=== PATIENT | male | born 1960 | race Caucasian/White ===

== ENCOUNTER 2019-09-04 17:34 | Inpatient (IN) | payer OTHER ==
[~2019-09-04] VITALS: Ht 182.9 cm; Wt 111.2 kg
[2019-09-04 17:41] VITALS: Ht 182.9 cm; Wt 111.2 kg
--- NOTE | 2019-09-04 17:59 | NUR ---
AT BEDSIDE FOR MSE
--- NOTE | 2019-09-04 18:02 | NUR ---
PT PRESENTS TO ED WITH C/O N/V/C X3 DAYS. PT STS HE HAS BEEN UNABLE TO EAT OR DRINK WITHOUT VOMTING X3 DAYS. PT PRIMARILY CONCERNED WITH CONSTIPATION AND STS HE USED 2 ENEMAS AND "MEDICATION TO HELP HIM GO" AND STILL HAS NOT HAD A BM. PT ALSO STS HE HAS INCREASED WORK OF BREATHING WHEN HE LAYS FLAT. PT HAS PAIN UPON PALPATION OF BILATERAL LOWER ABDOMINAL AREA. PT AAOX4, RESP E/U, ON FULL CM, NO ACUTE DISTRESS NOTED AT THIS TIME.
[2019-09-04 18:50] LABS: BASOPHIL % 0.4 % (0-2); PLATELET COUNT 236 x10^3mcL (130-400); RED CELL DISTRIBUTION WIDTH 14.2 % (11.5-14.5)
[2019-09-04 19:02] LABS: AMPHETAMINE QUAL UR NONE DETECTED (See below)
[2019-09-04 19:03] LABS: CALCIUM 11.9 mg/dL (8.5-10.1); CARBON DIOXIDE 33.2 mmol/L (21-32); CHLORIDE SERUM 95 mmol/L (98-107); CREATININE SERUM 2.2 mg/dL (0.7-1.3); GFR1 33 mL/min; GLUCOSE SERUM 154 mg/dL (74-106); POTASSIUM SERUM 3.9 mmol/L (3.5-5.1); SODIUM SERUM 137 mmol/L (136-145)
[2019-09-04 19:05] LABS: UA SPECIFIC GRAVITY 1.025 (1.005-1.035); microscopic required? YES; urine erythrocyte 3+ (NEGATIVE)
[2019-09-04 19:15] LABS: ALBUMIN 4.2 g/dL (3.4-5.0); ALKALINE PHOSPHATASE 87 U/L (46-116); ALT/SGPT 42 U/L (16-63); AST/SGOT 29 U/L (15-37); BILIRUBIN TOTAL 1.5 mg/dL (0.20-1.00); LIPASE 126 IU/L (73-393); MAGNESIUM 3.7 mg/dL (1.8-2.4); T4(THYROXINE) 6.1 ug/dL (4.7-13.3)
[2019-09-04 19:17] LABS: CHOLESTEROL 265 mg/dL (<200); HDL CHOLESTEROL 33 mg/dL (40-60); TOTAL PROTEIN, SERUM 8.3 g/dL (6.4-8.2)
--- NOTE | 2019-09-04 19:42 | NUR ---
PT RETURNS FROM CT WITHOUT INCIDENT AT THIS TIME. RESTING IN A POSITION OF COMFORT, AOX4, RESP EVEN AND UNLABORED, NO ACUTE DISTRESS NOTED.
--- NOTE | 2019-09-04 20:40 | NUR ---
PT RESTING IN A POSITION OF COMFORT, AOX4, RESP EVEN AND UNLABORED, NO ACUTE DISTRESS NOTED.
--- NOTE | 2019-09-04 21:19 | NUR ---
PT RESTING IN A POSITION OF COMFORT, AOX4, RESP EVEN AND UNLABORED, NO ACUTE DISTRESS NOTED. PT FAMILY REMAINS AT BEDSIDE.
--- NOTE | 2019-09-04 23:30 | NUR ---
ATTEMPTED NG TUBE PLACEMENT, PT PULLED OUT TUBE DURING INSERTION AND SAID THAT HE DID NOT WANT IT. PT AWARE THAT THIS IS THE TREATMENT FOR HIS CURRENT DIAGNOSIS. DR HOLLINS AWARE.
--- NOTE | 2019-09-04 23:40 | NUR ---
PT REPORT CALLED TO [facility] TO ASSUME PT CARE.
--- NOTE | 2019-09-04 23:50 | NUR ---
PT TRANSFERRED TO [facility] BY JEFF BY MATTY ACEVEDO. PT ACCEPTED BY [facility] TO ASSUME PT CARE. PT AOX4, RESP EVEN AND UNLABORED, NO ACUTE DISTRESS NOTED.
[2019-09-04] MEDS ORDERED: DEPAKOTE500 MG PO (23:55)
[2019-09-04] MEDS ORDERED: LITHIUM CARBON600 MG PO (23:55)
[2019-09-04] MEDS ORDERED: RIS1 PO (23:56)
[2019-09-04] MEDS ORDERED: TRAZODONE100 MG PO (23:56)
[2019-09-04] MEDS ORDERED: SEROQUEL300 MG PO (23:56)
[2019-09-05 00:20] VITALS: BP 136/85
--- NOTE | 2019-09-05 00:23 | NUR ---
RECEIVED PT FROM ED VIA LUIS. ORIENTED PT TO ROOM AND SURROUNDINGS. IV NOTED TO LEFT HAND PATENT AND INTACT. INSTRUCTED PT ON THE USE OF CALL LIGHT FOR ASSISTANCE. ENDORSED PT TO PRIMARY NURSE [facility]
--- NOTE | 2019-09-05 00:34 | NUR ---
PT'S SISTER STATED PT HAS NOT BEEN ABLE TO TAKE HIS MEDICATIONS FOR HIS BIPOLAR FOR PAST 3 DAYS DUE TO VOMITING. PT REFUSED NG TUBE INSERTION IN ER, CONTINUES TO REFUSE NG TUBE INSERTION. ABDOMEN DISTENDED. PER ER REPORT, PT VOMITS EVEN WITH SIP OF WATER. PT'S SISTER STATED PT WILL BECOME AGITATED, NOTED PT ALREADY SOMEWHAT ANXIOUS. PT ASKING IF HE CAN RECEIVE MEDICATION TO HELP HIM CALM DOWN VIA IV. PAGED Lucas VYAS.
--- NOTE | 2019-09-05 00:38 | NUR ---
Christopher VYAS CALLED BACK. INFORMED DOES NOT HAVE NG TUBE, PT UNABLE TO TAKE PO MEDS. INFORMED PT STARTING TO GET ANXIOUS AND AGITATED DUE TO HAVE MISSED MEDICATIONS FOR BIPOLAR PAST [address] CRUZ GAVE TELEPHONE ORDER FOR ATIVAN 1MG IVP Q 4HRS PRN FOR ANXIETY/AGITATION.
--- NOTE | 2019-09-05 01:05 | NUR ---
STILL REFUSING TO HAVE NG TUBE INSERTION.
--- NOTE | 2019-09-05 01:37 | NUR ---
EYES CLOSED, BREATHING EVEN AND UNLABORED ON ROOM AIR. LYING ON HIS RIGHT SIDE, CALL LIGHT WITHIN EASY REACH. HOB KEPT ELEVATED 40 DEG.
[2019-09-05 05:14] VITALS: BP 132/85
--- NOTE | 2019-09-05 05:14 | NUR ---
VOMITTED DARK COLORED EMESIS, 400ML. ZOFRAN 4MG ADMINISTERED SLOW IVP. HOB KEPT ELEVATED 45 DEG. IVF OF D5 NS INFUSING WELL AT 80ML/HR TO LEFT HAND IV. IV SITE FREE FROM ERYTHEMA OR SWELLING.
--- NOTE | 2019-09-05 06:07 | NUR ---
EYES CLOSED, APPEARS COMFORTABLE AT THIS TIME. KEPT STRICT NPO. ABDOMEN STILL DISTENDED, HYPOACTIVE BOWEL SOUNDS. HOB KEPT ELEVATED 35 DEG. CALL LIGHT WITHIN EASY REACH.
--- NOTE | 2019-09-05 06:07 | NUR ---
IV SITE FREE FROM ERYTHEMA OR SWELLING. IVF INFUSING WELL.
[2019-09-05 06:23] LABS: BASOPHIL % 0.2 % (0-2); PLATELET COUNT 217 x10^3mcL (130-400); RED CELL DISTRIBUTION WIDTH 14.1 % (11.5-14.5)
[2019-09-05 06:40] LABS: CALCIUM 10.6 mg/dL (8.5-10.1); CARBON DIOXIDE 33.2 mmol/L (21-32); CREATININE SERUM 1.8 mg/dL (0.7-1.3); POTASSIUM SERUM 3.7 mmol/L (3.5-5.1)
--- NOTE | 2019-09-05 07:10 | NUR ---
RECEIVED PT FROM SWATHI SEPULVEDA. PT AA/OX4 LAYING IN BED. NO S/S OF ACUTE DISTRESS. NO SOB ON 2LNC. NO C/O ABD. PAIN AT THIS TIME. MED SURG. NO N/V AT THIS TIME. STRICT NPO IN PLACE. IV WNL TO LH, PATENT AND FLUSHES WELL. IVF FLOWING. INSTRUCTED TO USE CALL LIGHT TO CALL FOR ASSISTANCE PRN. VERBALIZED UNDERSTANDING. NO CHEST PAIN. BED IN LOW POSITION. CALL LIGHT WITHIN REACH. WILL CONT. TO MONITOR.
--- NOTE | 2019-09-05 07:15 | NUR ---
AWAKE AND ALERT, KEPT NPO. BREATHING EVEN AND UNLABORED. ENDORSED TO NURSE MARITZA
[2019-09-05 08:24] VITALS: BP 140/85
--- NOTE | 2019-09-05 10:12 | NUR ---
PT COMPLAINT OF NAUSEA. GIVEN IV MED FOR NAUSEA. SEE JAN. IV WNL, IVF FLOWING. NGT INSERTED TO RIGHT NARE, PER DR. MELISSA ORDER. PT TOLERATED PROCEDURE WELL. STAT KUB ORDERED FOR PLACEMENT VERIFICATION. WILL CONNECT TO LOW INTERMITTENT SUCTION PER DR. MELISSA ORDER ONCE PLACEMENT CONFIRMED. PT AA/OX4. NO C/O PAIN. NO S/S OF ACUTE DISTRESS. NO SOB ON ROOM AIR. BED IN LOW POSITION. CALL LIGHT WITHIN REACH. WILL CONT. TO MONITOR.
--- NOTE | 2019-09-05 10:45 | NUR ---
KUB CONFIRMED NGT PLACEMENT. PT CONNECTED TO LOW INTERMITTENT SUCTION PER PHYSICIAN ORDER. RESTING IN BED WITH BOTH EYES CLOSED. O2 SAT 88% ON ROOM AIR. PLACED ON 2LNC. O2 SAT INCREASED TO 94%. RR EVEN/UNLABORED. NO S/S OF ACUTE DISTRESS. NO N/V AT THIS TIME. EASILY AROUSABLE TO VERBAL STIMULI. CALM/COOEPRATIVE. BED IN LOW POSITION. CALL LIGHT WITHIN REACH. WILL CONT. TO MONITOR.
--- NOTE | 2019-09-05 14:29 | NUR ---
PT AA/OX4 LAYING IN BED. REPORTS PASSING GAS RECTALLY X1 AT THIS TIME. DENIES N/V. NGT TO LOW INTERMITTENT SUCTION. GREEN DRAINAGE NOTED FROM NGT. DENIES ABD. PAIN AT THIS TIME. NO CHILLS. NO FEVER. CALM/COOPERATIVE. IV WNL TO LH, IVF FLOWING. BED IN LOW POSITION. CALL LIGHT WITHIN REACH. SISTER AT BEDSIDE. WILL CONT. TO MONITOR.
[2019-09-05 17:32] VITALS: BP 104/61
--- NOTE | 2019-09-05 18:36 | NUR ---
PT RECEIVING SMALL BOWEL FOLLOW THROUGH STUDY AT THIS TIME. NGT LOCKED FOR PROCEDURE. OUTPUT FROM NGT 1100CC GREEN. NGT INTACT TO RIGHT NARE. ALVAREZ OUTPUT 400CC, NUPUR/CLEAR. PT AA/OX4. NO C/O NAUSEA AT THIS TIME. NO SOB ON 2LNC. NO CHEST PAIN. CALM/COOPERATIVE. NO S/S OF ACUTE DISTRESS. BED IN LOW POSITION. CALL LIGHT WITHIN REACH. WILL CONT. TO MONITOR.
--- NOTE | 2019-09-05 19:35 | NUR ---
RECEIVED PT FROM DAY SHIFT RN. PT AAOX4 DENIES QUINTANILLA/DIZZINESS. BREATHING EVEN AND UNLABORED ON 2L/MIN NC, WITH NO SOB NOTED. MED SURG PT DENIES CHEST PAIN/PRESSURE. ABD SOFT/DISTENDED ACTIVE BOWEL SOUNDS DENIES ABD PAIN/N/V AT THIS TIME. NGT RIGHT NARE SUCTION OFF AT THIS TIME FOR SMALL BOWEL SERIES STUDY. HOB ELEVATED. ASPIRATION PRECAUTIONS. F/C IN PLACE DRAINING YELLOW URINE. PT ABLE TO TURN AND REPOSITION SELF. IV LH PATENT, INFUSING WELL. REINFORCE NPO STATUS WITH PT. CALL BUTTON WITHIN REACH. SAFETY PRECAUTIONS IN PLACE. WILL CONTINUE TO MONITOR.
[2019-09-05 20:30] VITALS: BP 118/81
--- NOTE | 2019-09-05 21:37 | NUR ---
PT REPORTED FEELING ANXIOUS AND REQUESTING MEDICATION. ATIVAN GIVEN PER EMAR. CALL BUTTON WITHIN REACH. SAFETY PRECAUTIONS IN PLACE. WILL CONTINUE TO MONITOR.
--- NOTE | 2019-09-05 22:15 | NUR ---
MUSIC MANAGER AT BEDSIDE. WILL CONTINUE WITH SMALL BOWEL FOLLOW UP SERIES FOR ANOTHER 3 HOURS PER TECH.
--- NOTE | 2019-09-06 00:45 | NUR ---
PT RESTING. NO SIGNS OF DISTRESS NOTED. CALL BUTTON WITHIN REACH. SAFETY PRECAUTIONS IN PLACE. WILL CONTINUE TO MONITOR.
--- NOTE | 2019-09-06 02:10 | NUR ---
PESTICIDE CHEMIST AT BEDSIDE. WILL CONTINUE WITH SMALL BOWEL FOLLOW UP SERIES.
--- NOTE | 2019-09-06 04:02 | NUR ---
PT ANXIOUS REMOVING GOWN AND ATTEMPTING TO REMOVE NGT AND NC. REINFORCE TEACHING ON KEEPING NGT AND NC ON. ATIVAN GIVEN PER EMAR. CALL BUTTON WITHIN REACH. SAFETY PRECAUTIONS IN PLACE. WILL CONTINUE TO MONITOR.
--- NOTE | 2019-09-06 04:47 | NUR ---
PT SLEPT MOST OF THE NIGHT WITH NO SIGNS OF DISTRESS NOTED. BREATHING EVEN AND UNLABORED ON NC 2L/MIN. WITH NO SOB NOTED. NGT IN PLACE. SMALL BOWEL FOLLOW UP SERIES CONTINUE AT THIS TIME. PT DENIES ANY PAIN/DISTRESS. IV PATENT INFUSING WELL. NO SIGNS OF INFILTRATION. F/C IN PLACE DRAINING YELLOW URINE. MEDICATED PER EMAR. CALL BUTTON WITHIN REACH. SAFETY PRECAUTIONS IN PLACE. WILL CONTINUE TO MONITOR.
[2019-09-06 05:15] VITALS: BP 140/71
--- NOTE | 2019-09-06 06:55 | NUR ---
RECEIVED A CALL FROM DR MELISSA THIS MORNING, NEW ORDERS CARRIED OUT.
--- NOTE | 2019-09-06 07:00 | NUR ---
AAO X4.DENIES ANY PAIN.R NARE WITH NGT TO REG SUCTION.WILL PUT IT TO LIS ENDORSED BY NOC RN.LUNGS CLEAR.IVF D5 NS AT 125 ML/HR INFUSING WELL.CALL LIGHT WITHIN REACH.INSTRUCTED TO CALL FOR ANY PAIN/DISCOMFORT.WILL CONTINUE TO MONITOR PT.ALSO PT ON NPO STATUS.
[2019-09-06 07:05] LABS: BASOPHIL % 0.3 % (0-2); PLATELET COUNT 197 x10^3mcL (130-400); RED CELL DISTRIBUTION WIDTH 13.3 % (11.5-14.5)
[2019-09-06 07:08] LABS: BILIRUBIN TOTAL 0.53 mg/dL (0.20-1.00); CALCIUM 10.2 mg/dL (8.5-10.1); CARBON DIOXIDE 29.8 mmol/L (21-32); CREATININE SERUM 1.3 mg/dL (0.7-1.3); MAGNESIUM 2.6 mg/dL (1.8-2.4); POTASSIUM SERUM 3.8 mmol/L (3.5-5.1); TOTAL PROTEIN, SERUM 6.4 g/dL (6.4-8.2)
[2019-09-06 07:17] LABS: ALBUMIN 3.2 g/dL (3.4-5.0)
--- NOTE | 2019-09-06 07:32 | NUR ---
PT RESTING. NO SIGNS OF DISTRESS NOTED. NGT SUCTION PER ORDER. ENDORSED CARE TO DAY SHIFT RN, ALL QUESTIONS ADDRESSED.
[2019-09-06 08:09] VITALS: BP 118/82
--- NOTE | 2019-09-06 08:33 | NUR ---
SPOKE WITH AND INFORMED OF NOTES AND HE STATED NO NEED FOR GI CONSULT FOR ILEUS.
--- NOTE | 2019-09-06 10:00 | NUR ---
PT NEARLY PULLED HIS NGT. AT BEDSIDE.PUT BACK HIS NGT.ASKED HE NEEDS TO ORDER KUB TO VERIFY PLACEMENT. PER HE DOES NOT NEED IT RIGHT NOW.PT NEEDS TO BE ON NGT FOR 1 MORE DAY.
--- NOTE | 2019-09-06 10:20 | NUR ---
GOT A CALL FR.PT'S SISTER ABOUT HER CONCERN OF PT NOT GETTING HIS PSYCHE MEDS.TALKED TO AND INFORMED HIM. UNABLE TO GIVE PSYCHE MEDS DUE TO PT ON SUCTION PER DR. JIMÉNEZ.WILL CALL [facility] TO INFORM HER.
--- NOTE | 2019-09-06 14:41 | NUR ---
PT CLAIMS ALVAREZ WAS LEAKING.CLAIMS TO HAVE BEEN CLAMPING THE TUBE.INFORMED PT NOT TO CLAMP IT.ALVAREZ IS DRAINING GOOD.CHANGED ANTHONY AND CLEANED PT.ALSO EMPTIED THE DRAINAGE FOR NGT.EMPTIED 550 ML OF BROWNISH FLUID.
[2019-09-06 16:53] VITALS: BP 137/87
--- NOTE | 2019-09-06 19:30 | NUR ---
PT RECIEVED FROM DAY NURSE. PT RESTING IN BED AT THIS TIME. DENIES PAIN OR DISCOMFORT AT THIS TIME. A/OX4, CALM AND COOPERATIVE AT THIS TIME. PT MS, DENIES CP, NV, DIZZINESS, OR PALPATATIONS. PALPABLE PULSES, NO EDEMA NOTED AT THIS TIME. BREATHING E/U. ABD SOFT AND ROUND, DENIES PAIN TO PALPATION. NGT TO R NARE NOTED TO LOW INTERMITTENT SUCTIONING. DRAINING COFFEE GROUND DRAINIAGE. ALVAREZ INTACT, DRAINING TO GRAVITY. GENERALIZED WEAKENESS, REPOSITIONS SELF. GEORGE TO LH INTACT AND INFUSING. BED AT LOWEST POSITION. CALL LIGHT WITHIN REACH. WILL CONTINUE TO MONITOR.
[2019-09-06 20:32] VITALS: BP 131/82
--- NOTE | 2019-09-06 22:00 | NUR ---
PT COMPLAINING OF AGITATION. MEDICATED WITH PRN ATIVAN. WILL CONTINUE TO MONITOR.
--- NOTE | 2019-09-07 00:36 | NUR ---
PT RESTING IN BED AT THIS TIME. DENIES PAIN OR DISCOMFORT. BREATHING E/U ON 2 L NC. NGT TO R NARE INTACT AND SUCTIONING. BED AT LOWEST POSITION. CALL LIGHT WITHIN REACH. WILL CONTINUE TO MONITOR.
[2019-09-07 05:07] VITALS: BP 140/80
[2019-09-07 06:20] LABS: BASOPHIL % 0.3 % (0-2); PLATELET COUNT 211 x10^3mcL (130-400); RED CELL DISTRIBUTION WIDTH 13.9 % (11.5-14.5)
--- NOTE | 2019-09-07 06:35 | NUR ---
PT RESTING IN BED AT THIS TIME. DENIES PAIN OR DISCOMFORT AT THIS TIME. BREATHING E/U ON 2L NC. NO SIGNS OF ACUTE DISTRESS NOTED AT THIS TIME. ALL NEEDS AND CONCERNS ADDRESSED THIS SHIFT. WILL ENDORSE TO DAY NURSE.
[2019-09-07 06:39] LABS: BILIRUBIN TOTAL 0.5 mg/dL (0.20-1.00); CALCIUM 9.9 mg/dL (8.5-10.1); CARBON DIOXIDE 31.6 mmol/L (21-32); CREATININE SERUM 1.3 mg/dL (0.7-1.3); MAGNESIUM 2.1 mg/dL (1.8-2.4); POTASSIUM SERUM 4.1 mmol/L (3.5-5.1)
[2019-09-07 06:43] LABS: ALBUMIN 3.1 g/dL (3.4-5.0)
--- NOTE | 2019-09-07 07:30 | NUR ---
AAO X4.DENIES ANY PAIN/DISCOMFORT.R NARE WITH NGT CONNECTED TO LIS DRAINING BROWNISH FLUID.LUNGS CLEAR.ABDOMEN SOFT.CLAIMS TO BE PASSING GAS ALREADY.IVF D5NS GOING AT 125 ML.HR INFUSING WELL.CALL LIGHT WITHIN REACH.INSTRUCTED TO CALL FOR ANY PAIN/DISCOMFORT.WILL CONTINUE TO MONITOR PT.
[2019-09-07 08:13] VITALS: BP 134/86
--- NOTE | 2019-09-07 10:30 | NUR ---
ASSSUMED CARE AND REPORT FROM [facility] MASTERS AT BEDSIDE, PT IN BED, IN NO ACUTE DISTRESS, NGT TO (R) NARE PATENT AND INTERMITTENCE SUCTION, NOTED 500CC DARK BROWN W/ CLOTTING IN SUCTION TUBE, FC PATENT AND DRAINED WELL, DARK YELLOW URINE, APPROXIMATELY 600ML URINE, CLEAR, IV PATENT AND INFUSING WELL, DRESSING CDI, FAMILY AT BEDSIDE, PT IN NO ACUTE DISTRESS, DENIED PAIN/DISCOMFORT, DENIED N/V/D, DENIED CP/QUINTANILLA/PALPITATION, NO FACIAL DROOP/SLURRED SPEECH NOTED, SAFETY PROTOCOL MAINTAINED, CONTINUE TO MONITOR
--- NOTE | 2019-09-07 10:30 | NUR ---
CAME TO SEE PT.WILL BE ON HALDOL RTC.INFORMED CHARGE NURSE.PUT PT ON TELE.ASSIGNED PT TO TELE NURSE. ENDORSED PT TO SONAM GAO.
--- NOTE | 2019-09-07 10:58 | NUR ---
SEEN BY SURGEON SHIN, NEW ORDER OBTAINED, PT AND FAMILY MADE AWARE, NO FURTHER CONCERNS NEEDED AT THIS TIME WHEN ASKED, PT RESTIN IN BED, IN NO ACUTE DISTRESS, CONTINUE TO MONITOR
--- NOTE | 2019-09-07 11:32 | NUR ---
PT HAD XRAY DONE AT BEDSIDE, HANK MELISSA MADE AWARE, AWAITING FOR RESULT, PT IN BED IN NO ACUTE DISTRESS
--- NOTE | 2019-09-07 14:26 | NUR ---
URINE COLLECTED FOR UA ORDER, PT AND FAMILY MADE AWARE, SAMPLE SENT TO LAB, OT IN BED IN NO ACUTE DISTRESS, CONTINUE TO MONITOR
[2019-09-07 15:25] LABS: microscopic required? YES; urine erythrocyte 2+ (NEGATIVE)
[2019-09-07 16:03] VITALS: BP 145/92
--- NOTE | 2019-09-07 17:46 | NUR ---
PT RESTING IN BED, CALM AND COOPERATIVE, VERBAL, AXOX4, DENIED PAIN/QUINTANILLA/CP/PALPITATION, DENIED N/V/D, NO FACIAL DROOP/SLURRED SPEECH, RESP E/U, RA, TELE, NSR, NGT DRAINAED WELL W/ GRAVITY, FC PATENT AND DRAINED WELL, NPO, IV PATENT AND INFUSING WELL, DRESSING CDI, SISTER AT BEDSIDE, PT REPORTED PASSING GAS, ALL NEEDS ADDRESSED AT THIS TIME, SAFETY PROTOCOL MAINTAINED, WILL ENDORSE TO ONCOMING RN
--- NOTE | 2019-09-07 19:30 | NUR ---
PT RECIEVED FROM DAY NURSE. PT RESTING IN BED AT THIS TIME. A/O X4, CALM AND COOPERATIVE AT THIS TIME. TELE 17, SB. DENIES CP, NV, DIZZINESS, OR PALPATATIONS. PALPABLE PULSES, NO EDEMA NOTED AT THIS TIME. BREATHING E/U ON 2L NC. DENIES SOB. ABD SOFT AND ROUND. DENIES PAIN TO PALPATION. NGT TO R NARE DRAINING TO GRAVITY, DRAINING BROWN LIQUID. ALVAREZ IN PLACE DRAINING TO GRAVITY. GENERALIZED WEAKNESS. IV TO LH, INTACT AND INFUSING. WILL CONTINUE TO MONITOR.
[2019-09-07 20:57] VITALS: BP 199/91
--- NOTE | 2019-09-07 21:30 | NUR ---
PT BP 199/19. MADE AWARE. NEW ORDERS PROVIDED. WILL MEDICATE PT AND CONTINUE TO MONITOR.
[2019-09-07 22:10] VITALS: BP 129/87
--- NOTE | 2019-09-07 22:10 | NUR ---
RECHECKED PT BP PRIOR TO GIVING PRN BP MED. PT BP NOW 127/87. HELD PRN BP MED. WILL CONTINUE TO MONITOR.
--- NOTE | 2019-09-08 | NUR ---
PT RESTING IN BED AT THIS TIME. NO S/S OF PAIN OR DISCOMFORT AT THIS TIME. BREATHING E/U ON 2L NC. NO SIGNS OF ACUTE DISTRESS AT THIS TIME. BED AT LOWEST POSITION. CALL LIGHT WITHIN REACH. WILL CONTINUE TO MONITOR.
[2019-09-08 06:13] VITALS: BP 148/98
[2019-09-08 06:27] LABS: BASOPHIL % 0.5 % (0-2); PLATELET COUNT 227 x10^3mcL (130-400); RED CELL DISTRIBUTION WIDTH 12.9 % (11.5-14.5)
--- NOTE | 2019-09-08 06:54 | NUR ---
PT RESTING IN BED AT THIS TIME. DENIES PAIN OR DISCOMFORT. BREATHING E/U ON 2L NC. NO SIGNS OF ACUTE DISTRESS AT THIS TIME. WILL ENDORSE TO DAY NURSE. 1500 NG OUTPUT THIS SHIFT. WILL ENDORSE TO DAY NURSE.
[2019-09-08 07:07] LABS: BILIRUBIN TOTAL 0.7 mg/dL (0.20-1.00); CALCIUM 9.8 mg/dL (8.5-10.1); CARBON DIOXIDE 31.2 mmol/L (21-32); CREATININE SERUM 1.3 mg/dL (0.7-1.3); MAGNESIUM 1.8 mg/dL (1.8-2.4); POTASSIUM SERUM 3.7 mmol/L (3.5-5.1); TOTAL PROTEIN, SERUM 6.4 g/dL (6.4-8.2)
[2019-09-08 07:13] LABS: ALBUMIN 3.2 g/dL (3.4-5.0)
--- NOTE | 2019-09-08 07:30 | NUR ---
PT ENDORSE TO ME THIS MORNING LAYING IN BED RESTING AT 40DEG, AA/ O X4. BREATHING EVEN AND UNLABORED ON 2L NC, NO ACUTE RESP DISTRESS OR SOB NOTED. TELE 17 SR NOTED, HR CURRENTLY 71BPM. PER NIGHT NURSE STATED ONCE HALDOL IM WAS GIVEN LAST NIGHT, HR DROPPED TO LOW 30S. AT THIS TIME PT DENIES ANY CP OR DISCOMFORT. BOWEL SOUNDS ACTIVE IN ALL FOUR QUADS, NGT TO RIGH NARE INPLACE DRAINING TO GRAVITY. 600ML OF DARK BOWN NOTED. EDUCATED TO PATIENT AND HIS SISTER THE IMPORTANCE OF NOT DRINK WATER OR HAVING ICE. PER PT STATED DOCTOR STATED HE CAN HAVE ICE EVERY 2 HOURS. WILL CONFRIM WITH DOCTOR REGRADING ICE. ALVAREZ INTACT AND DRAINING/ 500ML OF YELLOW URINE NOTED. IV TO THE L HAND INACT AND PATENT/ NO REDNESS OR SWELLING NOTED. SISTER AT BEDSIDE. WILL CONTINUE TO MONTIOR.
--- NOTE | 2019-09-08 09:11 | NUR ---
PT C/O OF FEELING ANXIOUS, MEDICATED PER EMAR. REFUSING TO HAVE ANYMORE HALDOL IM, STATING HES GETTING A REACTION. MADE AWARE/ WILL CONTINUE TO DREW.
--- NOTE | 2019-09-08 09:17 | NUR ---
WALKED INTO THE ROOM AND PT SISTER WAS GIVING PT ICE WITH SOME WATER. ADVICE BOTH PATIENT AND SISTER THE IMPORTANCE OF NOT HAVING WATER, THEY AGREED. WILL CONTINUE TO MONITOR.
--- NOTE | 2019-09-08 09:30 | NUR ---
DR. JIMÉNEZ AT THE BEDSIDE, EXPLAIN PLAN OF CARE TO PT AND HIS SISTER. DR. JIMÉNEZ MADE AWARE OF PT HR DROPPING FROM 60S TO HIGH 30S AT TIMES. PER DR. JIMÉNEZ PT IS TO ONLY HAVE A FEW ICE CHIPS JUST TO MOIST MOUTH. WILL CONTINUE TO MONITOR.
[2019-09-08 11:30] VITALS: BP 158/91
--- NOTE | 2019-09-08 12:42 | NUR ---
PER DR. MELISSA ORDERS, ADVANCE NGT PLACEMENT TO 3RD GOOD, KUB ORDER STAT TO CHECK PLACEMENT. WILL CONTINUE TO MONITOR.
[2019-09-08 12:44] VITALS: BP 147/94
--- NOTE | 2019-09-08 13:01 | NUR ---
KUB RESULTS BACK, NG TUBE INPLACE/ NOW CONNECTED TO INTERMITTENT SUCTION/ TOLERATING WELL. WILL CONTINUE TO MONITOR.
--- NOTE | 2019-09-08 14:07 | NUR ---
PT HAD FORMED BM THIS AM. WILL CONTINUE TO MONITOR.
--- NOTE | 2019-09-08 16:04 | NUR ---
PHYSICAL THERAPY NOTE PATIENT AND FAMILY REFUSED EVAL AT THIS TIME SECONDARY TO MS WEAKNESS/ FATIGUE AND HAD CHANGE IN MEDS PER PATIENT. PATIENT EDUCATED WITH BENEFITS OF TREATMENT AND EVAL TO INCREASE MS STRENGTH AND STANDING BALANCE. UNABLE TO ENCOURAGE. PATIENT AND FAMILY REQUEST TO START TREATMENT TOMMORROW. NURSING AWARE AND CONFIRMED. WILL ATTEMPT EVAL NEXT VISIT.
[2019-09-08 17:38] VITALS: BP 140/79
--- NOTE | 2019-09-08 17:59 | NUR ---
PER DR. KATE ORDERS CLAMPED NG TUBE. TOTAL OUTPUT WHEN PT WAS ON INTERMITTENT 300ML/ DARK BROWN FLUID. WILL CONTINUE TO MONITOR.
--- NOTE | 2019-09-08 18:29 | NUR ---
NO ACUTE CHANGES AT THIS TIME, NO ACUTE RESP DISTRESS OR SOB NOTED. REMAINS ON 2L NC TOLERATING WELL. NGT TO RIGHT NARE CLAMP PER DR. KATE ORDERS. TOTAL OUTPUT FOR NGT 900ML= DARK BROWN FLUID. FOELY INTACT AND PATENT= TOTAL OUTPUT 900ML/DARK YELLOW URINE NOTED. IV TO THE LHAND INFUSING AT 125M/HR NO REDNESS OR SWELLING NOTED. CALL LIGHT IN REACH. BED IN LOW POSITTION. WILL CONTINUE TO MONITOR. WILL ENDORSE TO INCOMING RN.
[2019-09-08 19:28] VITALS: BP 125/71
--- NOTE | 2019-09-08 19:56 | NUR ---
RECEIVED PT IN BED, RESTING QUIETLY AT THIS TIME.ALERT AND ORIENTED. DENIES HEADACHE/DIZZINESS. RESP. EVEN AND UNLABORED.[address], NO ACUTE DISTRESS NOTED. NGT TO RT NARE, CLAMPED.CRISTIN. WELL. NO N/V NOTED. IVF, 1/2NS AT 125ML/HR, INTACT AND INFUSING VIA LT HAND, SITE CLEAR. ABD. SOFT, NON DISTENDED, BS ACTIVE, NO N/V NOTED. ALVAREZ CATH INTACT AND DRAINING YELLOW COLOR URINE.ASSISTED WITH HS CARE. CALL LIGHT WITHIN REACH. WILL CONTINUE TO MONITOR.
--- NOTE | 2019-09-09 02:12 | NUR ---
RESTING QUIETLY IN BED, WITH EYES CLOSED, APPEARS ASLEEP, EASILY AROUSABLE. RESP. EVEN AND UNLABORED. [address], NO ACUTE DISTRESS NOTED. NGT IN PLACE, CLAMPED, NO N/V NOTED. IVF INTACT AND INFUSING WELL, SITE CLEAR. CALL LIGHT WITHIN REACH. WILL CONTINUE TO MONITOR.
[2019-09-09 04:23] VITALS: BP 134/89
[2019-09-09 06:08] LABS: BASOPHIL % 0.3 % (0-2); PLATELET COUNT 193 x10^3mcL (130-400); RED CELL DISTRIBUTION WIDTH 13.3 % (11.5-14.5)
--- NOTE | 2019-09-09 06:10 | NUR ---
SLEPT MOST OF THE NIGHT. NO COMPLAINTS NOTED. RESP. EVEN AND UNLABORED. [address], NO ACUTE DISTRESS NOTED.NGT IN PLACE AND CLAMPED. CRISTIN. MEDS WELL. NO N/V NOTED.NPO MAINTAINED. IVF INTACT AND INFUSING WELL, SITE CLEAR. ALVAREZ CATH INTACT AND DRAINING YELLOW COLOR URINE. KEPT COMFORTABLE. NO AGITATION NOTED. AFEBRILE AD VITAL SIGNS STABLE. CALL LIGHT WITHIN REACH. WILL CONTINUE TO MONITOR.
[2019-09-09 06:21] LABS: ALKALINE PHOSPHATASE 59 U/L (46-116); ALT/SGPT 38 U/L (16-63); AST/SGOT 27 U/L (15-37); BILIRUBIN TOTAL 0.82 mg/dL (0.20-1.00); CALCIUM 9.8 mg/dL (8.5-10.1); CARBON DIOXIDE 26.9 mmol/L (21-32); CHLORIDE SERUM 108 mmol/L (98-107); CREATININE SERUM 1.2 mg/dL (0.7-1.3); GFR1 > 60 mL/min; GLUCOSE SERUM 106 mg/dL (74-106); MAGNESIUM 1.9 mg/dL (1.8-2.4); POTASSIUM SERUM 3.5 mmol/L (3.5-5.1); SODIUM SERUM 144 mmol/L (136-145)
[2019-09-09 06:33] LABS: ALBUMIN 2.9 g/dL (3.4-5.0)
--- NOTE | 2019-09-09 07:34 | NUR ---
PT LYING IN BED A/A. BREATHING EQUAL/ UNLABORED ON 2 L/ NC. NO ACUTE DISTRESS/ PAIN AT THIS TIME. NGT TO R. NARE IS CLAMPED, NO C/O N/V. ALVAREZ FLOWING TO GRAVITY WITH YELLOW URINE. IVF RUNNING AT 125 ML/HR. NO REDNESS/ SWELLING TO IV SITE. BED IN LOW POSITION, CALL LIGHT IN REACH, FALL /SAFETY PRECAUTIONS IN PLACE. WILL CONTINUE TO MONITOR
[2019-09-09 08:11] VITALS: BP 134/77
--- NOTE | 2019-09-09 10:04 | NUR ---
PT WENT DOWN TO XRAY BY BED. PT A/A WITH NO ACUTE DISTRESS/ PAIN. BREATHING EQUAL/ UNLABORED ON 2 L/ NC
--- NOTE | 2019-09-09 10:54 | NUR ---
PT BACK FROM XRAY, A/A. BREATHING EQUAL/ UNLABORED ON 2L/NC. IVF RUNNING AT 125 ML/HR. NO REDNESS/ SWELLING TO IV SITE. NO ACUTE DISTRESS/ PAIN. ALVAREZ FLOWING TO GRAVITY. NGT TO R. NARE IS CLAMPED. BED IN LOW POSITION, CALL LIGHT IN REACH, SAFETY/ FALL PRECAUTIONS IN PLACE. WILL CONTINUE TO MONITOR
[2019-09-09 11:39] VITALS: BP 112/60
--- NOTE | 2019-09-09 12:20 | NUR ---
PT LYING IN BED A/A. BREATHING EQUAL/ UNLABORED ON 2L/ NC. IVF RUNNING AT 125 ML/HR. NO REDNESS/ SWELLING TO IV SITE. NGT TO R. NARE CLAMPED. ALVAREZ FLOWING TO GRAVITY WITH YELLOW URINE. NO ACUTE DISTRESS/ PAIN. BED IN LOW POSITION, CALL LIGHT IN REACH, FALL/ SAFETY PRECAUTIONS IN PLACE. SISTER AT BED SIDE. WILL CONTINUE TO MONITOR
--- NOTE | 2019-09-09 14:25 | NUR ---
PT NGT REMOVED PER MD ORDER. PT CRISTIN WELL. NO C/O N/V. PT IS HAVING LOOSE STOOLS. WILL CONTINUE TO MONITOR
[2019-09-09 16:55] VITALS: BP 122/72
--- NOTE | 2019-09-09 18:32 | NUR ---
PT LYING IN BED A/A. BREATHING EQUAL/ UNLABORED ON 1 L/NC. NO REDNESS/ SWELLING TO IV SITE. ALVAREZ FLOWING TO GRAVITY WITH YELLOW URINE. PT CRISTIN FULL LIQUID DIET. NO ACUTE DISTRESS/ PAIN. BED IN LOW POSITION, CALL LIGHT IN REACH, SAFETY PRECAUTIONS IN PLACE. WILL ENDORSE TO ON COMING NURSE
[2019-09-09 20:02] VITALS: BP 136/78
--- NOTE | 2019-09-09 20:03 | NUR ---
RECEIVED PT IN BED. ALERT AND ORIENTED. ABLE TO VERBALIZE NEEDS. RESP. EVEN AND UNLABORED. 02 AT 1L/MIN VIA NC, NO ACUTE DISTRESS NOTED. SEEN BY DR GRIFFITH, NEW ORDERS RECEIVED. PT SCHEDULED FOR COLONOSCOPY IN AM, PT AWARE. WILL MAINTAIN NPO POST MN.INCONT. OF LOOSE STOOLS, CLEANED AND KEPT COMFORTABLE. ALVAREZ CATH INTACT AND DRAINING YELLOW COLOR URINE. HL TO LT HAND, INTACT AND PATENT. CALL LIGHT WITHIN REACH. WILL CONTINUE TO MONITOR.
--- NOTE | 2019-09-09 22:00 | NUR ---
K+ RIDER ([id number]) GIVEN ORDERED. CRISTIN. WELL. WILL CONTINUE TO MONITOR.
[2019-09-10] VITALS (7 sets, daily range): BP systolic 104–143; BP diastolic 65–91
--- NOTE | 2019-09-10 01:11 | NUR ---
BOWEL PREP DONE, FOR COLONOSCOPY IN AM. INCONT. OF WATER STOOLS, CLEANED AND KEPT COMFIORTABLE. CALL LIGHT WITHIN REACH. WILL CONTINUE TO MONITOR.WILL CONTINUE TO MONITOR.
--- NOTE | 2019-09-10 03:00 | NUR ---
EYES CLOSED AT THIS TIME, APPEARS ASLEEP, EASILY AROUSABLE. RESP. EVEN AND UNLABORED. NO ACUTE DISTRESS NOTED. WILL CONTINUE TO MONITOR.
--- NOTE | 2019-09-10 06:12 | NUR ---
AFEBRILE AND VITAL SIGNS STABLE. RESP. EVEN AND UNLABORED. NO ACUTE DISTRESS NOTED. DENIES PAIN OR ANY DISCOMFORT. PASSING WATERY STOOLS. CLEANED AND KEPT COMFORTABLE. ALVAREZ CATH INTACT AND PATENT. NPO MAINTAINED. FOR PROCEDURE TODAY. CONSENT OBTAINED FROM PT. CALL LIGHT WITHIN REACH. WILL CONTINUE TO MONITOR.
--- NOTE | 2019-09-10 08:32 | NUR ---
AT 0705 - RECEIVED PATIENT FROM NIGHT NURSE. SLEEPING. RESPIRATIONS REGULAR. PATIENT IS SCHEDULED FOR COLONOSCOPY TODAY. AT 0730 - AWAKE, ALERT AND ORIENTED. WASHED AFTER HAVING A YELLOW LIQUID BOWEL MOVEMENT. LOOKS CLEAR. PATIENT IS NPO EXCEPT MEDS. DENIES ANY PAIN. ALVAREZ CATHETER DRAINING NUPUR URINE.
--- NOTE | 2019-09-10 09:51 | NUR ---
PATIENT'S SISTER VISITING. SPOKE WITH PATIENT AND SISTER ABOUT CURRENT PLAN OF CARE. RECEIVED CALL FROM DR GRIFFITH. PROCEDURE WILL BE DONE THIS MORNING RATHER THAN THIS AFTERNOON. REPORT GIVEN TO NURSE FROM GI.
--- NOTE | 2019-09-10 10:15 | NUR ---
AT 1007 - SEEN BY DR JIMÉNEZ. PATIENT MAY BE DISCHARGED HOME LATER TODAY IF OK WITH SURGEON AND IGNITER CAPPER. PATIENT MAY HAVE SHOWER PRIOR TO DISCHARGE. AT 1010 - TAKEN TO GI LAB FOR COLONOSOCPY.
--- NOTE | 2019-09-10 13:37 | NUR ---
AT 1310 - PATIENT BACK IN ROOM FOLLOWING COLONOSCOPY AND REMOVAL OF MULTIPLE POLYPS ( 2 RIGHT COLON, 1 TRANSVERSE COLON AND 4 LEFT COLON ) UNDER MODERATE SEDATION WITH FENTANYL AND VERSED. PATIENT IS AWAKE, ALERT AND ORIENTED. SISTER AT BEDSIDE. VS WNL. SITTING UP IN BED EATING LUNCH. REGULAR DIET.
--- NOTE | 2019-09-10 13:56 | NUR ---
WANTED TO INITIATE BLADDER TRAINING PRIOR TO REMOVAL OF ALVAREZ CATHETER BEFORE DISCHARGE, BUT PATIENT AND SISTER REQUESTED THAT IT NOT BE STARTED YET PATIENT WANTS TO GET SOME SLEEP UNDISTURBED FOR A "COUPLE OF HOURS". EXPLAINED TO PATIENT AND SISTER REASONING FOR BLADDER TRAINING BUT PATIENT WANTS TO DELAY IT AT PRESENT.
--- NOTE | 2019-09-10 14:52 | NUR ---
Initial Nutrition Assessment: 253/B VARGHESE CURRIE MR Dx: SBO PMHx: Depression PSHx: none documented Labs: ALB 2.9L, CHOL 265H, HGB 12.9L Meds: Desyril, Lopressor, miralax, reglan, senokot, synthyroid, zofran Diet: NPO (for sx), (09/09) full liquid diet PO intake since admission: (09/09) 0%, (09/04- dinner)- NPO, (09/10) NPO Ht: 182.88 cm (72") Wt: 111 kg (244#) BMI:33.2 kg/m2 Bed scale: unable to access, pt gone for colonoscopy. IBW: 178# (81 kg) %IBW: 137 UBW: unable to access Age: 59/M Food Allergies: NKFA Skin: intact True: 19 Edema: none GI: Last BM: 09/09 Per H&P, Pt is a 59 YO Male PMH mood disorder, presented to ED with 3 days of tactile fever associated with nausea and NBNB vomiting for 1 day. He has had constipation for 2 days as well. No previous abdominal surgeries. He was evaluated in the ED and CT showed evidence of possible SBO and NGT placement was attempted but patient did not tolerate. he continued to vomit and was encouraged to reattempt NGT placement for treatment of his SBO. RD Note (09/10): Patient had gone for colonoscopy. Per charge account authorizer Nazia, pt had some nausea. Per progress note (09/09), Events since last encounter, NGT clamped, awaiting repeat AXR, passing flatus, tolerating PO meds and fluids Problem with: N/V/D/C: nausea per charge account authorizer Problems with: Chewing: Swallowing: none Current appetite: unable to access Recent wt change: unable to access %wt change: n/a Vitamin/Supplement use: unable to access Special diet at home: unable to access Physical activity: unable to access Nutrition education given: not possible at this time Food-drug interactions: none Education given: n/a Estimated Nutritional Needs Based on ideal body weight (81 kg) Energy:9931-6150 kcal/day (25-30 kcal/kg for maintenance) Protein: 81-97 g/day (1.0-1.2 g/kg for maintenance) Fluid: 7049-2400 mL/day (1 mL/kcal) Nutrition Diagnosis: 1. Inadequate oral intake related to restrictive diet order 2/2 SBO as evidenced by NPO. Intervention 1. Recommend progressing to full liquid diet once medically appropriate/ tolerated. Monitor/Evaluate Goal: PO intake at least 75% of estimated needs Monitor: PO intake, Labs, GI function F/U in 3-5 days as moderate risk
--- NOTE | 2019-09-10 14:52 | NUR ---
1. Recommend progressing to full liquid diet once medically appropriate/ tolerated.
--- NOTE | 2019-09-10 15:56 | NUR ---
BLADDER TRAINING COMMENCED. PATIENT'S SISTER EXPRESSED CONCERN THAT PATIENT IS CURRENTLY ONLY ON 400 MG SEROQUEL DAILY INSTEAD OF HIS USUAL 900 MG THAT HE TAKES AT HOME. WILL SPEAK WITH DR GRIFFITH WHEN HE COMES IN, HE WAS THE DOCTOR THAT ADJUSTED THE ORDER.
--- NOTE | 2019-09-10 17:10 | NUR ---
AT 1700 - PATIENT REQUESTED RELEASE OF ALVAREZ CATHETER CLAMP. NOW ON FREE DRAINAGE. STIL AWAITING TO BE SEEN BY DR GRIFFITH. PATIENT AND SISTER WOULD LIKE PATIENT TO GO HOME TODAY.
--- NOTE | 2019-09-10 18:33 | NUR ---
AT 1800 - DR GRIFFITH PER PHONE. PATIENT MAY DC HOME. HOWEVER, AFTER SPEAKING WITH PATIENT AND SISTER; PATIENT SAYS THAT HE WANTS TO STAY IN HOSPITAL TODAY AND BE DISCHARGED IN AM. PATIENT'S SISTER CONCERNED THAT PATIENT NEEDS FURTHER DOSE OF SEROQUEL TONIGHT. PATIENT USUSALLY TAKES TOTAL OF 900 MG PER DAY. HAS ONLY RECEIVED 400 MG THIS MORNING WITH NO ADDITIONAL DOSE SCHEDULED. AT 1810 - SPOKE WITH DR HUMPHRIES PER PHONE. RECEIVED ORDER FOR ADDITIONAL DOSE OF SEROQUEL [address] AWARE THAT PATIENT IS NOT DISCHARGING HOME TODAY. BLADDER TRAINING REMAINS IN PROGRESS. CATHETER RECLAMPED AT 1755. PATIENT IS TOLERATING CCHO DIET. DRINKING PO LIQUIDS. NO C/O PAIN. WILL ENDORSE CARE TO NIGHT NURSE.
--- NOTE | 2019-09-10 19:30 | NUR ---
REC'D PT FROM DAY NURSE. PT RESTING IN BED. AAOX3. REORIENTED TO YEAR. FOLLOWS COMMANDS. SPEECH CLEAR. MED SURG, NO TELE. DENIES CP, DIZZINESS, OR PALPITATIONS. DENIES RESP DISTRESS OR SOB. BREATHING EVEN/UNLABORED ON RA. ABD SOFT/ROUND. DENIES ABD PAIN, TENDERNESS, OR N/V. ALVAREZ DRAINING YELLOW URINE TO GRAVITY. PLAN TO D/C ALVAREZ TOMORROW. BLADDER TRAINING INITIATED DURING DAY SHIFT, BUT PT STATED HE DID NOT WANT TO DO BLADDER TRAINING TONIGHT. PT SAYS HE "HAS ONLY SLEPT 5 HOURS IN THE PAST FEW DAYS" AND WANTS TO REST. EDUCATED PT REGARDING PURPOSE OF BLADDER TRAINING. PT VERBALIZED UNDERSTANDING AND WILL RESUME IN AM. GEN WEAKNESS. ABLE TO MOVE ALL EXTREMITIES. REPORTS AMBULATING ON HIS OWN AT HOME. IV TO LW FLUSHED AND PATENT, SITE WNL. CALL LIGHT WITHIN REACH, BED AT LOWEST POSITION. WILL CONTINUE TO MONITOR.
--- NOTE | 2019-09-11 01:30 | NUR ---
PT RESTING IN BED WITH EYES CLOSED. NO SIGNS OF DISTRESS OR PAIN NOTED. BREATHING EVEN/UNLABORED ON RA. CALL LIGHT WITHIN REACH, BED AT LOWEST POSITION. WILL CONTINUE TO MONITOR.
[2019-09-11 05:39] VITALS: BP 123/81
--- NOTE | 2019-09-11 06:07 | NUR ---
PT AWAKE AND LAYING ON R SIDE. NO COMPLAINTS AT THIS TIME. REPORTS GETTING SOME SLEEP LAST NIGHT. DENIES ANY PAIN OR N/V. ALVAREZ CARE PROVIDED. ALVAREZ CLAMPED FOR BLADDER TRAINING. NO SIGNIFICANT CHANGES DURING SHIFT. CALL LIGHT WITHIN REACH, BED AT LOWEST POSITION. WILL ENDORSE TO DAY NURSE.
--- NOTE | 2019-09-11 07:00 | NUR ---
AAO TIMES 4. MED SURG PATIENT. LUNGS CTA. NO SOB. O2 SAT ON RA 93%. BS'S ACTIVE TIMES 4. OBESE. IV SITE CDI. COOPERATIVE. ALVAREZ CATH DRAINING CLEAR YELLOW URINE TO BSD. TRACE EDEMA BLE.
--- NOTE | 2019-09-11 07:19 | NUR ---
PT C/O OF HIS BLADDER FEELING FULL. REPORTS IT "HURTS A LITTLE BUT NOT REALLY." ENCOURAGED TO [facility] FOR ANOTHER 30 MIN BUT PT SAID "I DON'T WANT TO EAT BREAKFAST LIKE THIS." ALVAREZ UNCLAMPED. CLEAR YELLOW URINE DRAINING TO GRAVITY. WILL INFORM DAY NURSE.
[2019-09-11 08:18] VITALS: BP 129/93
--- NOTE | 2019-09-11 08:35 | NUR ---
CLAMPED ALVAREZ CATH FOR BLADDER TRAINING PURPOSES.
[2019-09-11 09:10] VITALS: BP 123/81
--- NOTE | 2019-09-11 10:10 | NUR ---
AT 0835 HIS ALVAREZ CATH WAS CLAMPED, AT 1000 HE CALLED TO HAVE HIS CATHETER DRAINED HIS BLADDER FELT FULL.I DRAINED HIS CATHETER, THEN I REMOVED HIS ALVAREZ CATH WITH A TOTAL OF 650 ML CLEAR YELLOW URINE TO ALVAREZ.
--- NOTE | 2019-09-11 11:56 | NUR ---
HE URINATED VIA URINAL 100 ML YELLOW CLEAR URINE. HE SAYS HE WILL BE READY TO DISCHARGE HOME AFTER LUNCH.
--- NOTE | 2019-09-11 13:09 | NUR ---
GAVE DISCHARGE INSTRUCTIONS, AND THE PRESCRIPTION WAS SENT BY DR MARLEY TO [facility] IN [facility] [place]. REMOVED SALINE LOCK, ANGIO INTACT. PATIENTS SISTER PRESENT FOR INSTRUCTIONS. HE IS URINATING FREELY SINCE REMOVAL OF ALVAREZ CATH. NO C/O PAIN, AAO TIMES 4.
== END 2019-09-11 14:32 | disposition home or self-care (01) | DRG 344 ==
LOC: ED 17:34 → DU 22:10 → MU 22:10 → DU 09-07 10:36 → MU 09-09 19:01
PROVIDERS: Emergency Medicine; Internal Medicine; Internal Medicine Gastroenterology; Internal Medicine Nephrology; ADMIT Internal Medicine Pulmonary Disease
PROC: 0D5 Gastrointestinal System, Destruction (ICD-10-PCS; 2019-09-04)
PROC: 0D9670Z Drainage of Stomach with Drainage Device, Via Natural or Artificial Opening (ICD-10-PCS; principal; 2019-09-10 15:30)
PROC: 0D5 Gastrointestinal System, Destruction (ICD-10-PCS; 2019-09-10 15:30)
PROC: 0D5 Gastrointestinal System, Destruction (ICD-10-PCS; 2019-09-10 15:30)
DX: K56.609 Unspecified intestinal obstruction, unspecified as to partial versus complete obstruction (principal); N17.0 Acute kidney failure with tubular necrosis; N18.9 Chronic kidney disease, unspecified; F31.9 Bipolar disorder, unspecified
CPT/HCPCS: 36600; 45378; 82962; 87804; 97110-GP; 97116-GP; 97530-GP; G0378; G0480; J0744; J1200; J1610; J1630; J1956; J2060; J2250; J2310; J2405; J2765; J3010; J3480; J3490; J7030; J7042; Q0092; Q9967